=== PATIENT | male | born 1965 | race Caucasian/White ===

== ENCOUNTER → 2020-09-10 | Outpatient (CLI) | payer OTHER ==
[~2020-09-10] MED LIST: HYDR-3246 PO; INSU100I17 SC; METF500T17 PO; PREG100C PO; TADA10TA PO
[2020-09-10 09:31] LABS: ALANINE AMINOTRANSFERASE 67 U/L (12-78); ALBUMIN 4.5 g/dL (3.4-5.0); ANION GAP 8 mmol/L (5-15); CALCIUM 9.6 mg/dL (8.5-10.1); CHLORIDE 108 mmol/L (98-107)
[2020-09-10 09:34] LABS: ALKALINE PHOSPHATASE 63 U/L (45-117); BILIRUBIN,TOTAL 2.2 mg/dL (0.2-1.0); CREATININE 1.17 mg/dL (0.7-1.3); TOTAL PROTEIN 7.7 g/dL (6.4-8.2)
== END | disposition home or self-care (01) ==
LOC: STAR 08:07
PROVIDERS: ATTEND Orthopaedic Surgery
DX: Z01.812 Encounter for preprocedural laboratory examination (principal); Z20.828 Contact with and (suspected) exposure to other viral communicable diseases; S83.241A Other tear of medial meniscus, current injury, right knee, initial encounter; R94.31 Abnormal electrocardiogram [ECG] [EKG]; X58.XXXA Exposure to other specified factors, initial encounter; Y93.89 Activity, other specified; Y92.89 Other specified places as the place of occurrence of the external cause; Y99.8 Other external cause status
CPT/HCPCS: 80053; 87635; 93005

== ENCOUNTER 2020-09-16 08:02 | Day surgery (SDC) | payer OTHER ==
[~2020-09-16] VITALS: Ht 177.8 cm; Wt 104.7 kg
[~2020-09-16 08:02] MED LIST changes: -HYDR-3246 PO; +HYDR-3248 PO
[2020-09-16] MEDS ORDERED: MIDAZOLAM 1 MG/ML, 5ML ONE (08:29)
[2020-09-16] MEDS ORDERED: FENTANYL PF 250 MCG/5ML ONE (08:29)
[2020-09-16] MEDS ORDERED: BUPIVACAINE/PF 0.25% ONE (09:02)
[2020-09-16] MEDS ORDERED: EPINEPHRINE TOPICAL SOLN 1 MG/ML, 30ML ONE (09:02)
[2020-09-16] MEDS ORDERED: losartan PO (09:05)
[2020-09-16] MEDS ORDERED: LACTATED RINGERS 1,000 ML IV SCH (09:30)
[2020-09-16] MEDS ORDERED: CHLORHEXIDINE 15 ML UDC MM ONE (09:30)
[2020-09-16] MEDS ORDERED: DEXAMETHASONE 4 MG/ML, 1ML ONE (10:09)
[2020-09-16] MEDS ORDERED: CEFAZOLIN 1,000 MG ONE (10:57)
[2020-09-16] MEDS ORDERED: NEOSTIGMINE 1 MG/ML, 10ML ONE (10:57)
[2020-09-16] MEDS ORDERED: BUPIVACAINE/PF 0.5% ONE (10:57)
[2020-09-16] MEDS ORDERED: PROPOFOL 10 MG/ML, 20ML ONE (10:57)
[2020-09-16] MEDS ORDERED: GLYCOPYRROLATE 0.2MG/1ML, 5ML ONE (10:57)
[2020-09-16] MEDS ORDERED: ROCURONIUM 10MG/ML,5ML ONE (10:57)
[2020-09-16] MEDS ORDERED: ONDANSETRON 2MG/ML, 2ML ONE (10:57)
[2020-09-16] MEDS ORDERED: SUCCINYLCHOLINE 20 MG/ML, 10ML ONE (10:57)
[2020-09-16] MEDS ORDERED: FENTANYL PF 100 MCG/2ML ONE (11:29)
[2020-09-16] MEDS ORDERED: PROMETHAZINE 25 MG/ML, 1ML IVPush PRN (11:30)
[2020-09-16] MEDS ORDERED: MEPERIDINE/PF 25MG/0.5ML IVPush PRN (11:30)
[2020-09-16] MEDS ORDERED: LABETALOL 5MG/ML, 20ML IV PRN (11:30)
[2020-09-16] MEDS ORDERED: HYDROmorphone 1 MG/ML, 1ML INJ IVPush PRN (11:30)
[2020-09-16] MEDS ORDERED: HALOPERIDOL 5 MG/ML IV PRN (11:30)
[2020-09-16] MEDS ORDERED: DIPHENHYDRAMINE 50 MG/ML, 1ML IVPush PRN (11:30)
[2020-09-16] MEDS ORDERED: METHOCARBAMOL 1,000 MG in DEXTROSE 5% 100 ML IV ONE (11:30)
[2020-09-16] MEDS: FENTANYL PF 100 MCG/2ML IV PRN ×2 (11:30→11:38)
[2020-09-16] MEDS ORDERED: HYDROcodone/APAP 7.5-325MG/15ML UDC PO PRN (11:30)
[2020-09-16] MEDS ORDERED: hydrALAzine 20 MG/ML, 1ML IV PRN (11:30)
[2020-09-16] MEDS ORDERED: HYDROcodone/APAP 7.5-325MG/15ML UDC ONE (11:35)
== END 2020-09-16 14:00 | disposition home or self-care (01) ==
LOC: OUT 08:02
PROVIDERS: ATTEND Orthopaedic Surgery
DX: S83.241A Other tear of medial meniscus, current injury, right knee, initial encounter (principal); S83.281A Other tear of lateral meniscus, current injury, right knee, initial encounter; M94.261 Chondromalacia, right knee; G89.18 Other acute postprocedural pain; E11.9 Type 2 diabetes mellitus without complications; I10 Essential (primary) hypertension; Z79.891 Long term (current) use of opiate analgesic; Z79.899 Other long term (current) drug therapy; Z88.0 Allergy status to penicillin; X58.XXXA Exposure to other specified factors, initial encounter; Y93.89 Activity, other specified; Y92.89 Other specified places as the place of occurrence of the external cause; Y99.8 Other external cause status
CPT/HCPCS: 29880; 64447; 82962; J0330; J0690; J1100; J2250; J2405; J2704; J2800; J3010; J7120; J2710